=== PATIENT | male | born 1960 | race Caucasian/White ===

== ENCOUNTER 2018-06-06 22:58 | Emergency (ER) | payer OTHER ==
[~2018-06-06] VITALS: Ht 172.7 cm; Wt 74.8 kg
[2018-06-07 01:10] VITALS: BP 128/77
== END 2018-06-07 01:19 | disposition home or self-care (01) ==
LOC: ER 23:06
DX: L03.114 Cellulitis of left upper limb (principal); Z85.118 Personal history of other malignant neoplasm of bronchus and lung; Z98.890 Other specified postprocedural states
CPT/HCPCS: 73090; 93971; 99284; A4606; Z7610